=== PATIENT | male | born 1995 | race Caucasian/White ===

== ENCOUNTER 2025-05-06 13:23 | Emergency (ER) | payer OTHER ==
[~2025-05-06] VITALS: Ht 172.7 cm; Wt 80.2 kg
[2025-05-06 13:26] VITALS: BP 130/68; PULSE 74; RESP 16; O2SAT 100
--- NOTE | 2025-05-06 15:17 | Physician Documentation ---
History of Present Illness ~ Chief Complaint: Ear Pain Stated Complaint: HEARING LOSS WC Time Seen by MD: 14:36 OK to notify your PCP?: Yes Source: patient Mode of Arrival: POV Exam Limitations: no limitations HPI This is a 29-year-old male who comes in complaining of decreased hearing in tenderness in his left ear. 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 He denies trauma to the area. He denies pain or discharge. Medication Reconciliation Allergies: Coded Allergies: No Known Allergies (Unverified , 05/06/25) Physical Exam Vital Signs: Temperature: 98.3, Source: Temporal, Heart Rate: 74, Respiratory Rate: 16, BP: 130/68, Pulse Oximetry: 100, Weight: 80.150 Oxygen Flow Rate: 0 Pulse Oximetry Reflects: adequate oxygenation General Appearance: alert, WD/WN, no apparent distress Ear To inspection of the left ear no erythema or edema surrounding the ear. No discharge from the opening of the ear canal. Left EAC within normal limits. Left TM shows no bulge, erythema or lots of landmarks. The remainder of the ENT exam is within normal limits Head: normal inspection Progress Results/Orders Results/Orders Vital Signs 05/06/25 13:26 Temp 98.3 Pulse 74 Resp 16 B/P (MAP) 130/68 Pulse Ox 100 O2 Flow Rate 0 Medical Decision Making Findings The patient's complaints are all very subjective. I told him to follow up with the work comp physician for referral to ENT or to an utility tender carding. Continue to wear ear plugs return to the ER for any worsening or concerning symptoms Additional Comment Decreased hearing. Tenderness. Departure Disposition: HOME / SELF CARE / HOMELESS Impression: Primary Impression: Tinnitus of left ear Condition: Stable Discharge Instructions: Tinnitus Additional Instructions: Follow up with your primary care physician or your employers worker's compensation physician for referral to a your nose and throat specialist or an utility tender carding. Referrals: NO PRIMARY CARE PROVIDER (PCP) Signature Scribe Signature: No scribe Attestation: The note accurately reflects work and decisions made by me.Tere RODRIGUEZ 05/06/25 15:17 TERE PEREZ May 06, 2025 15:17
[2025-05-06 15:23] VITALS: TEMP 98.3
== END 2025-05-06 15:24 | disposition home or self-care (01) ==
LOC: ER 13:24
DX: H93.12 Tinnitus, left ear (principal)
CPT/HCPCS: 99282